=== PATIENT | male | born 1960 | race Caucasian/White ===

== ENCOUNTER → 2016-10-22 | Day surgery (SDC) | payer OTHER ==
[~2016-10-22] MED LIST: AMLODIPINE BESYL5 MG PO; COREG12.5 MG PO; GLUCOPHAGE500 M1 PO; LISINOPRIL-HCTZ1 T15 PO; LISINOPRIL10 MG PO; MONTELUKAST SOD10 MG PO; OMEPRAZOLE40 M1 PO; VITAMIN D50000 UNIT PO
--- NOTE | ~2016-10-22 | OR ---
Unit #: [id number] #: [id number] Patient: KARUNA GIBSON [id number] [address] [address] [id number] O MR#: [id number] NAME: KARUNA GIBSON ROOM: Date of Procedure: 10/22/2016 Admission Date: 10/22/2016 Surgeon: Yovani Costa M.D. : 1960 Attending Physician: Yovani Costa M.D. OPERATIVE REPORT PROCEDURE PERFORMED Colonoscopy. PREOPERATIVE DIAGNOSIS History of colon polyps. POSTOPERATIVE DIAGNOSES Diverticular disease and internal hemorrhoids. ANESTHESIA Monitored anesthesia care. DESCRIPTION OF PROCEDURE After adequate explanation of the risks, benefits and alternatives of the procedure, an informed consent was obtained from the patient. The patient was brought to the Endoscopy Suite. Intravenous sedation was administered. The patient was placed in the left lateral position. The colonoscope was introduced into the rectum and advanced to the cecum without difficulty. Once in the cecum, the anatomic landmarks were identified very well. The ileocecal valve was examined. The appendiceal orifice was examined. The scope was slowly withdrawn with the findings as noted in the next section. Adequate mucosal visualization of the colonic mucosa was done upon slow withdrawal. The scope was slowly withdrawn into the rectum and a retroflexed view was also obtained. The scope was withdrawn. The patient tolerated the procedure very well. FINDINGS CECUM: Normal. ILEOCECAL VALVE: Normal. APPENDICEAL VALVE: Normal. ASCENDING COLON: Normal. TRANSVERSE COLON: Normal. DESCENDING COLON: Normal. SIGMOID COLON: Scattered diverticula. RECTUM: Nonbleeding internal hemorrhoids. Scope withdrawal time was over 6 minutes. ASSESSMENT AND PLAN The patient is a 56-year-old male with a history of colon polyps, who presented for surveillance colonoscopy. Noted to have evidence of diverticular disease and internal hemorrhoids. He will be increased to Unit #: [id number] #: [id number] Patient: KARUAN GIBSON increase fiber intake and follow up in the office as needed. Dictated by... Caryn Tyson/elizabeth TD: 10/23/2016 04:12 JOB #: [id number] OPERATIVE REPORT X Yovani Costa MD OPERATIVE NOTE
== END | disposition home or self-care (01) ==
LOC: COPS 10:40
DX: Z12.11 Encounter for screening for malignant neoplasm of colon (principal); K57.30 Diverticulosis of large intestine without perforation or abscess without bleeding; K64.8 Other hemorrhoids; I10 Essential (primary) hypertension; E11.9 Type 2 diabetes mellitus without complications; J45.909 Unspecified asthma, uncomplicated; Z86.010 Personal history of colon polyps; Z79.899 Other long term (current) drug therapy; Z90.49 Acquired absence of other specified parts of digestive tract; Z98.890 Other specified postprocedural states
CPT/HCPCS: 82947